=== PATIENT | female | born 1965 | race Caucasian/White ===

== ENCOUNTER 2018-02-12 06:25 | Day surgery (SDC) | payer OTHER ==
[2018-02-12 08:00] LABS: BASO # 0.1 K/uL (0.0-0.2); BASO % 1.5 % (0.0-2.0); EOS # 0.1 K/uL (0.0-0.7); EOS % 1.4 % (0.0-4.0); LYMPH # 1.8 K/uL (1.0-4.3); LYMPH % 35.6 % (20.0-40.0); MEAN CORPUSCULAR HEMOGLOBIN 21.8 pg (27.0-31.0); MEAN CORPUSCULAR HGB CONC 31.7 g/dL (33.0-37.0); MONO # 0.5 K/uL (0.0-0.8); MONO % 10.7 % (0.0-10.0); NEUT # 2.5 K/uL (1.8-7.0); NEUT % 50.8 % (50.0-75.0); RBC 5.02 Mil/uL (3.80-5.20); WHITE BLOOD COUNT 4.9 K/uL (4.8-10.8)
[2018-02-12 08:03] LABS: MEAN CELL VOLUME 68.9 fL (81.0-99.0)
[2018-02-12 08:15] LABS: PROTHROMBIN TIME 10.8 SECONDS (9.7-12.2)
[2018-02-12 08:26] LABS: ALB/GLOB RATIO 1.2 (1.0-2.1); ALBUMIN 4.4 g/dL (3.5-5.0); ALT/SGPT 27 U/L (9-52); AST/SGOT 39 U/L (14-36); BLOOD UREA NITROGEN 14 mg/dL (7-17); CALCIUM 9.1 mg/dl (8.6-10.4); GFR NON-AFRICAN AMERICAN > 60
[2018-02-12 08:31] LABS: CK-MB 1.81 ng/mL (0.0-3.38)
--- NOTE | 2018-02-12 09:02 | CP.PCM.PN ---
Subjective - Date & Time of Evaluation Date of Evaluation: 02/12/18 Time of Evaluation: 08:00 - Subjective Subjective: pt was schleudd for surgery this mornign and started to have papiatin, hr 140, ekg wsa ordered, dneis sob, chespta pain pt was referred to er for evlautin and avdised to f/u with pmd/caridogy and will resehcueld case when patietn is feeling better Objective - Labs Labs: 02/12/18 07:55 02/12/18 07:55 PT 10.8 SECONDS (9.7-12.2) 02/12/18 07:55 INR 1.0 02/12/18 07:55 APTT 33 SECONDS (21-34) 02/12/18 07:55
--- NOTE | 2018-02-16 18:22 | CARD ---
APPROVED REPORT Date of service: 02/12/2018 EKG Measurement Heart [id number] <Conclusion> Atrial fibrillation with rapid ventricular response Abnormal ECG
== END 2018-02-12 07:48 | disposition still patient (30) ==
LOC: C.SDS 06:25
PROVIDERS: ATTEND Obstetrics & Gynecology
DX: Z53.9 Procedure and treatment not carried out, unspecified reason (principal); N93.9 Abnormal uterine and vaginal bleeding, unspecified; N88.2 Stricture and stenosis of cervix uteri

== ENCOUNTER 2018-02-12 07:50 | Inpatient (IN) | payer OTHER ==
[2018-02-12 08:11] LABS: BASO # 0.1 K/uL (0.0-0.2); BASO % 1.6 % (0.0-2.0); EOS # 0.1 K/uL (0.0-0.7); EOS % 1.5 % (0.0-4.0); HEMOGLOBIN 10.5 g/dL (11.0-16.0); LYMPH # 1.8 K/uL (1.0-4.3); LYMPH % 34.8 % (20.0-40.0); MEAN CELL VOLUME 68.8 fL (81.0-99.0); MEAN CORPUSCULAR HEMOGLOBIN 21.8 pg (27.0-31.0); MEAN CORPUSCULAR HGB CONC 31.7 g/dL (33.0-37.0); MEAN PLATELET VOLUME 8.1 fL (7.2-11.7); MONO # 0.5 K/uL (0.0-0.8); MONO % 9.9 % (0.0-10.0); NEUT # 2.8 K/uL (1.8-7.0); NEUT % 52.2 % (50.0-75.0); RBC 4.83 Mil/uL (3.80-5.20); RED CELL DISTRIBUTION WIDTH 18.2 % (11.5-14.5); WHITE BLOOD COUNT 5.3 K/uL (4.8-10.8)
[2018-02-12 08:19] LABS: PROTHROMBIN TIME 11.1 SECONDS (9.7-12.2)
[2018-02-12 08:23] LABS: ALB/GLOB RATIO 1.2 (1.0-2.1); ALBUMIN 4.7 g/dL (3.5-5.0); ALT/SGPT 30 U/L (9-52); AST/SGOT 34 U/L (14-36); BLOOD UREA NITROGEN 13 mg/dL (7-17); CALCIUM 9.3 mg/dl (8.6-10.4); GFR NON-AFRICAN AMERICAN > 60
--- NOTE | 2018-02-12 08:25 | RAD ---
Date of service: 02/12/2018 PROCEDURE: CHEST RADIOGRAPH, 1 VIEW HISTORY: chest pain COMPARISON: None available. FINDINGS: LUNGS: Clear. PLEURA: No pneumothorax or pleural fluid seen. CARDIOVASCULAR: There is absence of aortic atherosclerotic calcification on x-ray. Normal heart size Cardiac monitoring device noted No gross pulmonary venous congestion appreciated OSSEOUS STRUCTURES: No significant abnormalities. VISUALIZED UPPER ABDOMEN: Normal. OTHER FINDINGS: None. IMPRESSION: No acute cardiopulmonary pathology noted
[2018-02-12] MEDS ORDERED: Sodium Chloride 0.9% 1,000 ML IV SCH (08:30)
[2018-02-12 08:43] LABS: B-TYPE NATRIURETIC PEPTIDE 198 pg/mL (0-900); CK-MB 1.64 ng/mL (0.0-3.38)
[2018-02-12 09:00] LABS: T3 2.23 nmol/L (1.49-2.60)
--- NOTE | 2018-02-12 10:45 | PCM.RRT ---
<Cuauhtemoc Garvin - Last Filed: 02/12/18 10:43> AUTO WRECKER Nurses Assessment - Situation Date: 02/12/18 Time AUTO WRECKER was called: 07:34 AUTO WRECKER Responder Arrival Time:: 07:36 AUTO WRECKER Location:: Same Day Surgery AUTO WRECKER Reason for Call: Chest Pain AUTO WRECKER Called By: RN - IV IV Inserted during AUTO WRECKER?: No - Respiratory AUTO WRECKER Delivery Method: Room Air Received Nebulizer Treatments: No Was the Patient Ventilated with Bag/Mask 100% O2?: No Secretions Suctioned?: No Was the Patient Intubated?: No Was the Patient Placed on a Ventilator?: No - Medication Medications Administered During AUTO WRECKER: No medications were administered during AUTO WRECKER - Diagnostic Test Ordered EKG: Yes (Atrial fibrilation with rapid ventricular response) Chest X-Ray: No CT Scan: No CPR started during AUTO WRECKER?: No - Vital Signs Vital Signs: BP 131/88 Pulse 100 BPM, irregular Respirations 14 SpO2 100% On room air - Mary Coma Scale Coma Scale Eye Opening: Spontaneous Coma Scale Motor: Obeys Commands Movement Coma Scale Verbal: Oriented Coma Scale Total: 15 - Time AUTO WRECKER Ended Time AUTO WRECKER Ended: 08:00 I.Reason for AUTO WRECKER - A) Acute Change in Patient: (Select all that apply): Acute change in heart rate less than 50 or greater than 120 - Neurological Status (Select all that apply): Alert, Responsive, Oriented, Verbal, Follows Commands - Respiratory Oxygen Delivery Method: Room Air - Constitutional Appears: Non-toxic - Head Head Exam: ATRAUMATIC, NORMAL INSPECTION - Respiratory Exam Respiratory Exam: absent: Accessory Muscle Use - Neurological Exam Neurological Exam: Alert, Awake, Oriented x3 - Extremities Exam Additional comments: Upon arrival in the ED, nursing staff began applying repeat EKG leads. Majority of physical exam was unable to be performed during course of the AUTO WRECKER due to nursing staff insisting that medical residents leave the patient's room. Plan - Assessment of Findings&Treatment Plan PGY-1 AUTO WRECKER Note AUTO WRECKER was called at 7:34 in same day surgery suite due to patient experiencing chest heaviness and palpitations. Patient was scheduled for surgery this morning for hysteroscopy with endometrial ablation. Prior to surgery patient began to experience chest heaviness and palpitations and AUTO WRECKER was called. Vitals were as follows: Vitals: BP 131/88 Pulse 100 BPM, irregular Respirations 14 SpO2 100% On room air Upon arrival, EKG leads were placed and EKG revealed rapid atrial fibrillation with ventricular rate in the 130s. Patient was brought to the emergency room and AUTO WRECKER concluded. <Chrissy Byrd V - Last Filed: 02/15/18 04:44> Attending/Attestation - Attestation I have personally seen and examined this patient.: Yes I have fully participated in the care of the patient.: Yes I have reviewed all pertinent clinical information, including history, physical exam and plan: Yes Notes (Text): This is late computer entry for 02/12/18. AUTO WRECKER called for chest pain and palpitations EKG obtained showing atrial fibrillation RVR. Patient with known history of atrial fibrillation and loop reorder. Patient is not on blood thinner secondary to vaginal blood loss. Patient prior to event is scheduled for customs entry clerk procedure in same day surgery. Patient is awake, alert, no acute distress, s1, s2, irregular irregular cta b/l soft nt/nd +BS no rebound no guarding Patient accompanied to the ED on telemonitoring for further stabilization.
--- NOTE | 2018-02-12 10:53 | C.PDOC ---
History Of Present Illness 53 y/o female presents to ED sent from same day surgery for evaluation of rapid a-fib. As per patient she woke up at 4am this morning with palpitations and while at [facility] developed palpitations. EKG was done at [facility] and sent to ED for f urther evaluation. Patient has a elsa recorder implanted by her yarn conditioner. Patient denies chest pain, sob or any other complaints at this time. Time Seen by Provider: 02/12/18 08:01 Chief Complaint (Nursing): Palpitations History Per: Patient History/Exam Limitations: no limitations Onset/Duration Of Symptoms: Days Current Symptoms Are (Timing): Still Present Past Medical History Reviewed: Historical Data, Nursing Documentation, Vital Signs Vital Signs: Last Vital Signs Temp Pulse 113 H 02/12/18 10:18 Resp 14 02/12/18 10:08 BP 108/66 02/12/18 10:08 Pulse Ox 100 02/12/18 10:08 - Medical History PMH: Anemia (IRON DEFICENCY), Asthma (NEVER HOSPITALIZED ), Colonic Polyps, HTN Surgical History: Endoscopy Family History: States: No Known Family Hx - Social History Hx Alcohol Use: No Hx Substance Use: No - Immunization History Hx Tetanus Toxoid Vaccination: No Hx Influenza Vaccination: No Hx Pneumococcal Vaccination: No Review Of Systems Constitutional: Negative for: Fever, Chills Cardiovascular: Positive for: Palpitations. Negative for: Chest Pain Respiratory: Negative for: Shortness of Breath Gastrointestinal: Negative for: Nausea, Vomiting Skin: Negative for: Rash Physical Exam - Physical Exam Appears: Non-toxic, No Acute Distress Skin: Warm, Dry, No Rash Head: Atraumatic, Normacephalic Eye(s): bilateral: Normal Inspection Oral Mucosa: Moist Neck: Normal ROM, Supple Cardiovascular: Rhythm Irregular Respiratory: Normal Breath Sounds, No Rales, No Rhonchi, No Wheezing Gastrointestinal/Abdominal: Soft, No Tenderness, No Guarding, No Rebound Extremity: No Pedal Edema, Capillary Refill (<2 seconds) Neurological/Psych: Oriented x3, Normal Speech, Normal Cognition ED Course And Treatment - Laboratory Results Result Diagrams: 02/12/18 08:05 02/12/18 08:05 ECG: Interpreted By Me, Viewed By Me ECG Rhythm: Atrial Fibrillation Interpretation Of ECG: Normal access Rate From EC (BPM) O2 Sat by Pulse Oximetry: 100 (RA) Pulse Ox Interpretation: Normal Progress Note: Spoke with patient PMD Dr. Tonny Montgomery, instructed to admit patient under his service to Telemetry. Disposition - Disposition Disposition: HOSPITALIZED Disposition Time: 09:00 Condition: FAIR - Clinical Impression Clinical Impression: Rapid atrial fibrillation - Scribe Statement The provider has reviewed the documentation as recorded by the Scribe Frederick Cardoza All medical record entries made by the Lizbethibe were at my direction and personally dictated by me. I have reviewed the chart and agree that the record accurately reflects my personal performance of the history, physical exam, me dical decision making, and the department course for this patient. I have also personally directed, reviewed, and agree with the discharge instructions and disposition.
[2018-02-12] MEDS: Sodium Chloride 0.9% 1,000 ML IV SCH ×4 (14:50→23:59)
--- NOTE | 2018-02-12 18:05 | CP.PCM.HP ---
History of Present Illness - History of Present Illness History of Present Illness: 53 y/o femals seen in ER c/o palpitation. EKG showed rapid atrial fibrillation. Deny SOB, chest pain, fever. Present on Admission - Present on Admission Any Indicators Present on Admission: Yes History of DVT/PE: No History of Uncontrolled Diabetes: No Urinary Catheter: No Decubitus Ulcer Present: No Review of Systems - Review of Systems All systems: reviewed and no additional remarkable complaints except (no fever, no SOB, no chest pain, vaginal bleed on and off) Past Patient History - Tetanus Immunizations Tetanus Immunization: Unknown - Past Medical History & Family History Past Medical History?: Yes - Past Social History Smoking Status: Never Smoked Chewing Tobacco Use: No Cigar Use: No Alcohol: None Drugs: Denies Home Situation {Lives}: With Family Domestic Violence: Negative - CARDIAC Hx Hypertension: Yes - PULMONARY Hx Asthma: Yes (NEVER HOSPITALIZED ) - NEUROLOGICAL Hx Neurological Disorder: No - HEENT Hx HEENT Problems: Yes Other/Comment: TO F/U WITH DR. SANDERS FOR HEARING LOSS - RENAL Hx Chronic Kidney Disease: No - ENDOCRINE/METABOLIC Hx Endocrine Disorders: No - HEMATOLOGICAL/ONCOLOGICAL Hx Anemia: Yes (IRON DEFICENCY) - INTEGUMENTARY Hx Dermatological Problems: Yes Other/Comment: HX: LEFT BREAST CYST - MUSCULOSKELETAL/RHEUMATOLOGICAL Hx Musculoskeletal Disorders: No Hx Falls: No - GASTROINTESTINAL Hx Gastrointestinal Disorders: Yes Hx Gastroesophageal Reflux: Yes Hx Hemorrhoids: Yes - GENITOURINARY/GYNECOLOGICAL Hx Genitourinary Disorders: Yes Other/Comment: HX: ABNORMAL UTERINE BLEEDING; CERVICAL STENOSIS - PSYCHIATRIC Hx Substance Use: No - SURGICAL HISTORY Hx Surgeries: Yes Hx Breast Biopsy: Yes (LEFT BREAST(PT. REPORTS 'NO' CANCER FOUND)) Hx Section: Yes - ANESTHESIA Hx Anesthesia: Yes Hx Anesthesia Reactions: No Hx Malignant Hyperthermia: No Meds Home Medications: Home Medication List Medication Instructions Recorded Confirmed Type RX: Apixaban [Eliquis] 5 mg PO BID tab 02/14/18 Rx RX: diltiaZEM CD [Cardizem CD] 120 mg PO DAILY cap 02/14/18 Rx Allergies/Adverse Reactions: Allergies Allergy/AdvReac Type Severity Reaction Status Date / Time bisoprolol Allergy Unknown UNKNOWN Verified 02/12/18 07:58 Physical Exam - Constitutional Appears: No Acute Distress - Head Exam Head Exam: NORMAL INSPECTION - Eye Exam Eye Exam: Normal appearance - Neck Exam Neck exam: Positive for: Normal Inspection - Respiratory Exam Respiratory Exam: NORMAL BREATHING PATTERN - Rectal Exam Rectal Exam: Deferred - Extremities Exam Extremities exam: Positive for: normal inspection - Back Exam Back exam: NORMAL INSPECTION - Neurological Exam Neurological exam: Alert Results - Vital Signs Recent Vital Signs: Last Vital Signs Temp 98.2 F 02/12/18 15:00 Pulse 64 02/12/18 16:49 Resp 20 02/12/18 15:00 BP 97/61 L 02/12/18 15:00 Pulse Ox 99 02/12/18 15:00 - Labs Result Diagrams: 02/12/18 08:05 02/13/18 07:00 Labs: Laboratory Results - last 24 hr 02/12/18 02/12/18 02/12/18 08:05 08:05 08:05 WBC 5.3 RBC 4.83 Hgb 10.5 L Hct 33.2 L MCV 68.8 L MCH 21.8 L MCHC 31.7 L RDW 18.2 H Plt Count 385 MPV 8.1 Neut % (Auto) 52.2 Lymph % (Auto) 34.8 [place] % (Auto) 9.9 Eos % (Auto) 1.5 Baso % (Auto) 1.6 Neut # (Auto) 2.8 Lymph # (Auto) 1.8 [place] # (Auto) 0.5 Eos # (Auto) 0.1 Baso # (Auto) 0.1 PT 11.1 INR 1.0 APTT 32 Sodium 143 Potassium 3.9 Chloride 106 Carbon Dioxide 25 Anion Gap 17 BUN 13 Creatinine 0.6 L Est GFR ( Amer) > 60 Est GFR (Non-Af Amer) > 60 Random Glucose 112 H Calcium 9.3 Phosphorus Magnesium Total Bilirubin 0.7 AST 34 ALT 30 Alkaline Phosphatase 80 Total Creatine Kinase 259 H CK-MB (Mass) 1.64 Troponin I < 0.0120 NT-Pro-B Natriuret Pep 198 Total Protein 8.5 H Albumin 4.7 Globulin 3.8 Albumin/Globulin Ratio 1.2 Free T4 Total T3 TSH 3rd Generation 02/12/18 02/12/18 02/12/18 08:05 08:05 17:00 WBC RBC Hgb Hct MCV MCH MCHC RDW Plt Count MPV Neut % (Auto) Lymph % (Auto) [place] % (Auto) Eos % (Auto) Baso % (Auto) Neut # (Auto) Lymph # (Auto) [place] # (Auto) Eos # (Auto) Baso # (Auto) PT INR APTT Sodium Potassium Chloride Carbon Dioxide Anion Gap BUN Creatinine Est GFR ( Amer) Est GFR (Non-Af Amer) Random Glucose Calcium Phosphorus 3.0 Magnesium 2.1 Total Bilirubin AST ALT Alkaline Phosphatase Total Creatine Kinase CK-MB (Mass) Troponin I < 0.0120 < 0.0120 NT-Pro-B Natriuret Pep Total Protein Albumin Globulin Albumin/Globulin Ratio Free T4 0.94 Total T3 2.23 TSH 3rd Generation 1.71 Assessment & Plan (1) Atrial fibrillation Status: Acute (2) H/O vaginal bleeding Status: Acute (3) HTN (hypertension) Status: Chronic (4) Anemia Status: Acute - Assessment and Plan (Free Text) Assessment: A/P: Continue medication. Spoke with Cardiology Dr. Woods - Date & Time Date: 02/12/18 Time: 18:07
[2018-02-12] MEDS: Enoxaparin 40 mg Syringe SC SCH (21:12)
[2018-02-13] MEDS: Sodium Chloride 0.9% 1,000 ML IV SCH (03:43)
--- NOTE | 2018-02-13 08:24 | CP.PCM.PN ---
Subjective - Date & Time of Evaluation Date of Evaluation: 02/13/18 Time of Evaluation: 08:10 - Subjective Subjective: Pt offers no complain except mild headache; low BP last night but no CP, no SOB, (+) dry cough, no diarrhea Objective - Vital Signs/Intake and Output Vital Signs (last 24 hours): Temp Pulse Resp BP Pulse Ox 98.4 F 79 20 120/77 100 02/13/18 07:47 02/13/18 07:47 02/13/18 07:47 02/13/18 07:47 02/13/18 07:47 Intake and Output: 02/13/18 02/13/18 06:59 18:59 Intake Total 3200 Balance 3200 - Medications Medications: Current Medications Apixaban (Eliquis) 5 mg PO BID [facility] Last Admin: 02/12/18 17:10 Dose: 5 mg Diltiazem HCl (Cardizem Cd) 120 mg PO DAILY [facility] Enoxaparin Sodium (Lovenox) 40 mg SC Q12 [facility] Last Admin: 02/12/18 21:12 Dose: 40 mg Ferrous Sulfate (Feosol) 325 mg PO DAILY [facility] Sodium Chloride (Sodium Chloride 0.9%) 1,000 mls @ 300 mls/hr IV .Q3H20M [facility] Last Admin: 02/13/18 03:43 Dose: 300 mls/hr Isoniazid (Niazid) 300 mg PO DAILY [facility]; Protocol Stop: 02/16/18 23:59 Montelukast Sodium (Singulair) 10 mg PO HS [facility] Pyridoxine HCl (Vitamin B6 50 Mg Tab) 50 mg PO DAILY [facility] - Labs Labs: 02/12/18 08:05 02/12/18 08:05 PT 11.1 SECONDS (9.7-12.2) 02/12/18 08:05 INR 1.0 02/12/18 08:05 APTT 32 SECONDS (21-34) 02/12/18 08:05 - Eye Exam Eye Exam: Normal appearance - ENT Exam ENT Exam: Mucous Membranes Moist - Neck Exam Neck Exam: Full ROM, Normal Inspection. absent: Thyromegaly - Respiratory Exam Respiratory Exam: Clear to Ausculation Bilateral. absent: Rales, Rhonchi, Wheezes - Cardiovascular Exam Cardiovascular Exam: REGULAR RHYTHM, +S1, +S2. absent: Gallop, JVD, Murmur - GI/Abdominal Exam GI & Abdominal Exam: Soft. absent: Tenderness - Extremities Exam Extremities Exam: Full ROM, Normal Capillary Refill, Pedal Edema. absent: Joint Swelling Assessment and Plan - Assessment and Plan (Free Text) Assessment: HTN, At Fib, Allergic Rhinitis Stop hydration and check labs Cont meds/ await cardio opinion
[2018-02-13] MEDS: Enoxaparin 40 mg Syringe SC SCH (09:22)
[2018-02-13] MEDS: diltiaZEM 120 mg/24 Hours CD Cap PO SCH (09:23)
[2018-02-13 11:14] LABS: BLOOD UREA NITROGEN 14 mg/dL (7-17); GFR NON-AFRICAN AMERICAN > 60
[2018-02-13 16:19] VITALS: RESP 20
--- NOTE | 2018-02-13 22:20 | CP.PCM.CON ---
History of Present Illness - History of Present Illness History of Present Illness: Cardiac EP consult This patient presented with palpitations with dizziness and was admitted; post admission a loop recorder interrogation showed a narrow complex irregular tachycardia suggestive of atrial fibrillation @ ~ 250 beats per minute Past medical history significant for systemic hypertension for the last 8 years In the beginning of this year (2018) while driving in the morning felt faint blurred vision and almost passed out; she was seen by Dr. Woods and a loop recorder was implanted; she was placed briefly on elliquis and discontinued She is perimenopausal and has history of anemia and had endometrial ablation Past surgery: none Allergies: none Medications: reviewed Social: denied smoking alcohol or drug abuse She works in [employer] for [employer] Her two sisters older than she of diabetic complications; she has two diabetic brothers; she has one son who is healthy Exam Afebrile No goiter Normal venous pressures Clear lungs Loop recorder implanted No S3 No edema DP+=+ EKG: Atrial fibrillation Echo: pending Labs:Normal thyroid function Past Patient History - Tetanus Immunizations Tetanus Immunization: Unknown - Past Medical History & Family History Past Medical History?: Yes - Past Social History Smoking Status: Never Smoked Chewing Tobacco Use: No Cigar Use: No Alcohol: None Drugs: Denies Home Situation {Lives}: With Family Domestic Violence: Negative - CARDIAC Hx Hypertension: Yes - PULMONARY Hx Asthma: Yes (NEVER HOSPITALIZED ) - NEUROLOGICAL Hx Neurological Disorder: No - HEENT Hx HEENT Problems: Yes Other/Comment: TO F/U WITH DR. SANDERS FOR HEARING LOSS - RENAL Hx Chronic Kidney Disease: No - ENDOCRINE/METABOLIC Hx Endocrine Disorders: No - HEMATOLOGICAL/ONCOLOGICAL Hx Anemia: Yes (IRON DEFICENCY) - INTEGUMENTARY Hx Dermatological Problems: Yes Other/Comment: HX: LEFT BREAST CYST - MUSCULOSKELETAL/RHEUMATOLOGICAL Hx Musculoskeletal Disorders: No Hx Falls: No - GASTROINTESTINAL Hx Gastrointestinal Disorders: Yes Hx Gastroesophageal Reflux: Yes Hx Hemorrhoids: Yes - GENITOURINARY/GYNECOLOGICAL Hx Genitourinary Disorders: Yes Other/Comment: HX: ABNORMAL UTERINE BLEEDING; CERVICAL STENOSIS - PSYCHIATRIC Hx Substance Use: No - SURGICAL HISTORY Hx Surgeries: Yes Hx Breast Biopsy: Yes (LEFT BREAST(PT. REPORTS 'NO' CANCER FOUND)) Hx Section: Yes - ANESTHESIA Hx Anesthesia: Yes Hx Anesthesia Reactions: No Hx Malignant Hyperthermia: No Meds Allergies/Adverse Reactions: Allergies Allergy/AdvReac Type Severity Reaction Status Date / Time bisoprolol Allergy Unknown UNKNOWN Verified 02/12/18 07:58 - Medications Medications: Current Medications Apixaban (Eliquis) 5 mg PO BID [facility] Last Admin: 02/13/18 17:34 Dose: 5 mg Diltiazem HCl (Cardizem Cd) 120 mg PO DAILY [facility] Last Admin: 02/13/18 09:23 Dose: 120 mg Ferrous Sulfate (Feosol) 325 mg PO DAILY [facility] Last Admin: 02/13/18 09:23 Dose: 325 mg Isoniazid (Niazid) 300 mg PO DAILY [facility]; Protocol Stop: 02/16/18 23:59 Last Admin: 02/13/18 09:23 Dose: 300 mg Montelukast Sodium (Singulair) 10 mg PO [facility] Last Admin: 02/13/18 21:17 Dose: 10 mg Pyridoxine HCl (Vitamin B6 50 Mg Tab) 50 mg PO DAILY [facility] Last Admin: 02/13/18 09:23 Dose: 50 mg Results - Vital Signs Recent Vital Signs: Last Vital Signs Temp 99.6 F 02/13/18 16:00 Pulse 70 02/13/18 16:00 Resp 20 02/13/18 16:00 BP 124/76 02/13/18 16:00 Pulse Ox 99 02/13/18 16:00 - Labs Result Diagrams: 02/12/18 08:05 02/13/18 07:00 Labs: Laboratory Results - last 24 hr 02/13/18 02/13/18 00:32 07:00 Sodium 140 Potassium 3.8 Chloride 113 H Carbon Dioxide 25 Anion Gap 13 BUN 14 Creatinine 0.6 L Est GFR ( Amer) > 60 Est GFR (Non-Af Amer) > 60 Random Glucose 99 Calcium 8.0 L Troponin I < 0.0120 Assessment & Plan - Assessment and Plan (Free Text) Assessment: Ms. Ricci has paroxysmal long standing recurrent symptomatic atrial fibrillation There are no identifiable etiological factors except systemic hypertension Her CHADS-VASC scores are 2 and HAS_BLED scores are 1-2 based on potential endometrial bleeding Of note her single episode of transient loss of consciousness during driving could plausibly be related to the arrhythmia given the documented rapid ventricular rates (~250 beats per minute) If endometrial bleeding is not a concern it would be prudent to consider retirement anticoagulation Therapeutically maximize beta blockade and consider antiarrhythmics (low risk of torsade/ventricular tachycardia) versus ablation (low risk of tamponade and stroke) I have discussed with her prognosis ( palpitations syncope embolism tachycardia induced cardiomyopathy) options (RUSLAN/cardioversion/medications and or ablation) and risks (drug induced ventricular tachycardia and periprocedural tamponade and stroke) and benefits (Cure/success ~80-90%) She verbalized understanding and intends to discuss with Dr. Woods In the interim would uptitrate diltiazem and continue with anti-coagulation
[2018-02-14 07:23] VITALS: BP 129/79; TEMP 98.2; O2SAT 98
[2018-02-14] MEDS: diltiaZEM 120 mg/24 Hours CD Cap PO SCH (09:59)
[2018-02-14 13:02] VITALS: PULSE 90
--- NOTE | 2018-02-14 14:27 | CP.PCM.PN ---
Subjective - Date & Time of Evaluation Date of Evaluation: 02/14/18 Time of Evaluation: 14:25 - Subjective Subjective: S: Feels felecia. No bleeding Objective - Vital Signs/Intake and Output Vital Signs (last 24 hours): Temp Pulse Resp BP Pulse Ox 98.2 F 90 20 129/79 98 02/14/18 07:00 02/14/18 12:00 02/14/18 07:00 02/14/18 07:00 02/14/18 07:00 Intake and Output: 02/14/18 02/14/18 06:59 18:59 Intake Total 100 Balance 100 - Medications Medications: Current Medications Apixaban (Eliquis) 5 mg PO BID [facility] Last Admin: 02/14/18 09:59 Dose: 5 mg Diltiazem HCl (Cardizem Cd) 120 mg PO DAILY [facility] Last Admin: 02/14/18 09:59 Dose: 120 mg Ferrous Sulfate (Feosol) 325 mg PO DAILY [facility] Last Admin: 02/14/18 09:59 Dose: 325 mg Montelukast Sodium (Singulair) 10 mg PO [facility] Last Admin: 02/13/18 21:17 Dose: 10 mg Pyridoxine HCl (Vitamin B6 50 Mg Tab) 50 mg PO DAILY [facility] Last Admin: 02/14/18 09:59 Dose: 50 mg - Labs Labs: 02/12/18 08:05 02/13/18 07:00 PT 11.1 SECONDS (9.7-12.2) 02/12/18 08:05 INR 1.0 02/12/18 08:05 APTT 32 SECONDS (21-34) 02/12/18 08:05 - Constitutional Appears: No Acute Distress - Head Exam Head Exam: NORMAL INSPECTION - Eye Exam Eye Exam: Normal appearance - ENT Exam ENT Exam: Normal Exam - Neck Exam Neck Exam: Normal Inspection - Cardiovascular Exam Cardiovascular Exam: Irregular Rhythm - GI/Abdominal Exam GI & Abdominal Exam: Soft - Rectal Exam Rectal Exam: Deferred - Neurological Exam Neurological Exam: Alert Assessment and Plan (1) Atrial fibrillation Status: Acute (2) H/O vaginal bleeding Status: Acute (3) HTN (hypertension) Status: Chronic (4) Anemia Status: Acute - Assessment and Plan (Free Text) Assessment: A/P: d/c home. Continue Cardizem CD 120 mg Po daily. Eliquis 5 mg PO BID . F/u offiice Friday
--- NOTE | 2018-02-14 16:16 | CP.PCM.CON ---
History of Present Illness - History of Present Illness History of Present Illness: CC severe palpitations HPI 53 y/o [place] female seen in ER c/o palpitation 2days. Patient endorses occasional dizziness associated with palpitations. EKG showed rapid atrial fibrillation. Deny SOB, chest pain, fever. Review of Systems - Constitutional Constitutional: As Per HPI - EENT Eyes: absent: Change in Vision - Cardiovascular Cardiovascular: Dyspnea, Palpitations - Respiratory Respiratory: Dyspnea - Gastrointestinal Gastrointestinal: Abdominal Pain - Musculoskeletal Musculoskeletal: absent: Back Pain Past Patient History - Tetanus Immunizations Tetanus Immunization: Unknown - Past Medical History & Family History Past Medical History?: Yes - Past Social History Smoking Status: Never Smoked Chewing Tobacco Use: No Cigar Use: No Alcohol: None Drugs: Denies Home Situation {Lives}: With Family Domestic Violence: Negative - CARDIAC Hx Hypertension: Yes - PULMONARY Hx Asthma: Yes (NEVER HOSPITALIZED ) - NEUROLOGICAL Hx Neurological Disorder: No - HEENT Hx HEENT Problems: Yes Other/Comment: TO F/U WITH DR. SANDERS FOR HEARING LOSS - RENAL Hx Chronic Kidney Disease: No - ENDOCRINE/METABOLIC Hx Endocrine Disorders: No - HEMATOLOGICAL/ONCOLOGICAL Hx Anemia: Yes (IRON DEFICENCY) - INTEGUMENTARY Hx Dermatological Problems: Yes Other/Comment: HX: LEFT BREAST CYST - MUSCULOSKELETAL/RHEUMATOLOGICAL Hx Musculoskeletal Disorders: No Hx Falls: No - GASTROINTESTINAL Hx Gastrointestinal Disorders: Yes Hx Gastroesophageal Reflux: Yes Hx Hemorrhoids: Yes - GENITOURINARY/GYNECOLOGICAL Hx Genitourinary Disorders: Yes Other/Comment: HX: ABNORMAL UTERINE BLEEDING; CERVICAL STENOSIS - PSYCHIATRIC Hx Substance Use: No - SURGICAL HISTORY Hx Surgeries: Yes Hx Breast Biopsy: Yes (LEFT BREAST(PT. REPORTS 'NO' CANCER FOUND)) Hx Section: Yes - ANESTHESIA Hx Anesthesia: Yes Hx Anesthesia Reactions: No Hx Malignant Hyperthermia: No Meds Home Medications: Home Medication List Medication Instructions Recorded Confirmed Type Apixaban [Eliquis] 5 mg PO BID tab 02/14/18 Rx [id number] CD [Cardizem CD] 120 mg PO DAILY cap 02/14/18 Rx Allergies/Adverse Reactions: Allergies Allergy/AdvReac Type Severity Reaction Status Date / Time bisoprolol Allergy Unknown UNKNOWN Verified 02/12/18 07:58 Physical Exam - Constitutional Appears: Non-toxic - Head Exam Head Exam: NORMAL INSPECTION - Eye Exam Eye Exam: absent: Scleral icterus - ENT Exam ENT Exam: Mucous Membranes Moist - Respiratory Exam Respiratory Exam: Clear to Auscultation Bilateral - Cardiovascular Exam Cardiovascular Exam: REGULAR RHYTHM - GI/Abdominal Exam GI & Abdominal Exam: Soft. absent: Tenderness - Extremities Exam Extremities exam: Negative for: pedal edema - Neurological Exam Neurological exam: Alert, Oriented x3 Results - Vital Signs Recent Vital Signs: Last Vital Signs Temp 98.2 F 02/14/18 07:00 Pulse 90 02/14/18 12:00 Resp 20 02/14/18 07:00 BP 129/79 02/14/18 07:00 Pulse Ox 98 02/14/18 07:00 - Labs Result Diagrams: 02/12/18 08:05 02/13/18 07:00 Assessment & Plan - Assessment and Plan (Free Text) Assessment: New onset Paroxysmal atrial fibrillation Plan: Control heart rate Anticoagulation We will call [facility] to interrogate Loop recorder - Date & Time Date: 02/12/18 Time: 17:30
--- NOTE | 2018-02-14 16:27 | CP.PCM.PN ---
Subjective - Date & Time of Evaluation Date of Evaluation: 02/13/18 Time of Evaluation: 08:00 - Subjective Subjective: no further palpitations heart rate controlled by cardizem On oral anticoagulation Objective - Vital Signs/Intake and Output Vital Signs (last 24 hours): Temp Pulse Resp BP Pulse Ox 98.2 F 90 20 129/79 98 02/14/18 07:00 02/14/18 12:00 02/14/18 07:00 02/14/18 07:00 02/14/18 07:00 Intake and Output: 02/14/18 02/14/18 06:59 18:59 Intake Total 100 Balance 100 - Labs Labs: 02/12/18 08:05 02/13/18 07:00 PT 11.1 SECONDS (9.7-12.2) 02/12/18 08:05 INR 1.0 02/12/18 08:05 APTT 32 SECONDS (21-34) 02/12/18 08:05 - Constitutional Appears: Non-toxic - Eye Exam Eye Exam: absent: Scleral icterus - ENT Exam ENT Exam: Mucous Membranes Moist - Neck Exam Neck Exam: Full ROM - Respiratory Exam Respiratory Exam: absent: NORMAL BREATHING PATTERN - Cardiovascular Exam Cardiovascular Exam: REGULAR RHYTHM - GI/Abdominal Exam GI & Abdominal Exam: Soft - Extremities Exam Extremities Exam: absent: Pedal Edema Assessment and Plan - Assessment and Plan (Free Text) Assessment: Paroxysmal Atrial fibrillation Plan: EP evaluation for possible ablation Cont CCB and oral anticoagulation
--- NOTE | 2018-02-14 16:39 | CP.PCM.PN ---
Subjective - Date & Time of Evaluation Date of Evaluation: 02/14/18 Time of Evaluation: 14:00 - Subjective Subjective: Pt seen with at bedside Explained options of treatment ie medical tx v ablation Will think it over and let us know over the weekend Objective - Vital Signs/Intake and Output Vital Signs (last 24 hours): Temp Pulse Resp BP Pulse Ox 98.2 F 90 20 129/79 98 02/14/18 07:00 02/14/18 12:00 02/14/18 07:00 02/14/18 07:00 02/14/18 07:00 Intake and Output: 02/14/18 02/14/18 06:59 18:59 Intake Total 100 Balance 100 - Labs Labs: 02/12/18 08:05 02/13/18 07:00 PT 11.1 SECONDS (9.7-12.2) 02/12/18 08:05 INR 1.0 02/12/18 08:05 APTT 32 SECONDS (21-34) 02/12/18 08:05 - Constitutional Appears: Non-toxic - Head Exam Head Exam: absent: NORMOCEPHALIC - Eye Exam Eye Exam: absent: Scleral icterus - ENT Exam ENT Exam: Mucous Membranes Moist - Neck Exam Neck Exam: Full ROM - Respiratory Exam Respiratory Exam: absent: NORMAL BREATHING PATTERN - Cardiovascular Exam Cardiovascular Exam: REGULAR RHYTHM - GI/Abdominal Exam GI & Abdominal Exam: Soft - Extremities Exam Extremities Exam: Full ROM. absent: Pedal Edema - Neurological Exam Neurological Exam: Alert, Oriented x3
--- NOTE | 2018-02-16 18:23 | CARD ---
APPROVED REPORT Date of service: 02/12/2018 EKG Measurement Heart [id number] <Conclusion> Atrial fibrillation with rapid ventricular response Abnormal ECG
== END 2018-02-14 16:00 | disposition home or self-care (01) | DRG 310 ==
LOC: C.ER 07:50 → C.9E 08:54 → C.5S 13:37
PROVIDERS: ADMIT Internal Medicine; ATTEND Internal Medicine
DX: I48.0 Paroxysmal atrial fibrillation (principal); I10 Essential (primary) hypertension; D50.9 Iron deficiency anemia, unspecified; K21.9 Gastro-esophageal reflux disease without esophagitis; J45.909 Unspecified asthma, uncomplicated; H91.90 Unspecified hearing loss, unspecified ear

== ENCOUNTER 2018-03-26 07:47 | Day surgery (SDC) | payer OTHER ==
[2018-03-24 09:21] VITALS: BMI 22.6
[2018-03-26] MEDS ORDERED: Propofol 10 mg/ml Inj (20 ML) ONE ×2 (08:02→09:23)
[2018-03-26] MEDS ORDERED: Lidocaine Hydrochloride 10 ML INJ ONE (08:03)
[2018-03-26] MEDS ORDERED: Atropine 0.4 mg/ml Inj (1 mL) ONE (08:03)
[2018-03-26] MEDS ORDERED: Midazolam 2 MG/2 ML VIAL ONE (09:22)
[2018-03-26] MEDS ORDERED: Lactated Ringer's 1,000 ML IV SCH (11:00)
[2018-03-26] MEDS: HYDROmorphone 0.5 mg/0.5 ml ISec IVP PRN ×2 (11:23→12:35)
[2018-03-26 13:12] VITALS: O2SAT 100
[2018-03-26] MEDS ORDERED: Lactated Ringer's 1,000 ML IV ONE (14:20)
[2018-03-26 15:21] VITALS: BP 111/62; PULSE 92; RESP 18; TEMP 97.8
--- NOTE | 2018-03-26 23:33 | OP ---
PROCEDURE DATE: 03/26/2018 PREOPERATIVE DIAGNOSIS: Abnormal uterine bleeding. POSTOPERATIVE DIAGNOSES: 1. Abnormal uterine bleeding. 2. Submucosal myoma. PROCEDURE PERFORMED: Hysteroscopic myomectomy, dilation and curettage, endometrial ablation via NovaSure. SURGEON: Anne Marie Bowers MD SMOKED MEAT PREPARER: None. TYPE OF ANESTHESIA: General LMA. ESTIMATED BLOOD LOSS: 5 mL. COMPLICATIONS: None. OPERATIVE FINDINGS: Eight-week size uterus, no adnexal masses. Endometrial ablation time less than one minute. Bilateral ostia visualized. Good hemostasis. No complications. Submucosal myoma anterior removed prior to the procedure. SPECIMENS SENT TO PATHOLOGY: Endocervical curettings, endometrial curettings, and submucosal myoma DESCRIPTION OF PROCEDURE: The patient is a 53-year-old with abnormal uterine bleeding that failed medical therapy that desired surgical intervention. Risks, benefits, alternatives, and indications of the procedure were discussed with the patient. The patient was taken to the operating room where she was given general anesthesia. Once it was found to be adequate, she was placed on the operating table in the dorsal supine position with legs supported using stirrups. The patient was prepped and draped in the usual sterile fashion. A time-out confirmed correct patient and correct procedure. A bimanual exam was performed. A Bowman retractor was placed in the anterior and posterior fornix of the vagina. The cervix was adequately visualized. A single-tooth tenaculum was placed in the anterior lip of the cervix. Endocervical curettings were obtained with a Kevorkian curette and sent to Pathology on [facility]. The uterus was then sounded to 8 cm, following this, the cervix was sequentially dilated to allow for introduction of the hysteroscope under direct visualization using normal saline as the distention media. Bilateral ostia were visualized and the anterior myoma noted. MyoSure device was then inserted under direct visualization, and the myoma then carefully resected. The MyoSure device was then removed and gentle curettage was done at 360 degrees. Specimens were sent to pathology labelled as endometrial curettings. Following this, the NovaSure device was then inserted after the uterine cavity length and width were assessed and inserted into the machine. A cavity was performed and which was passed. The machine was then activated. The total endometrial ablation time is 56 seconds. Following this, the NovaSure device was then carefully deployed as instructed, and the hysteroscope was then reinserted. There was good ablation of the entire cavity. All instruments were removed. There was good hemostasis at the tenaculum puncture site. At the end of the procedure, all needle, sponge, and instrument counts were noted and correct x2. The patient tolerated the procedure well and was transferred to the recovery room in stable condition. Anne Marie Bowers MD
== END 2018-03-26 15:30 | disposition home or self-care (01) ==
LOC: C.SDS 07:47
PROVIDERS: ATTEND Obstetrics & Gynecology
DX: N93.9 Abnormal uterine and vaginal bleeding, unspecified (principal); D25.0 Submucous leiomyoma of uterus; I10 Essential (primary) hypertension; J45.909 Unspecified asthma, uncomplicated
CPT/HCPCS: 58561; 58563; 88305; J1170; J2250; J2405; J2704; J3010; J7120